=== PATIENT | male | born 1965 | race Caucasian/White ===

== ENCOUNTER 2017-04-24 18:05 | Emergency (ER) | payer BC ==
[~2017-04-24] VITALS: Ht 177.8 cm; Wt 88.5 kg
[2017-04-24 18:05] VITALS: BP 140/99
[2017-04-24] MEDS ORDERED: DICYCLOMINE HCL INJ 20 MG/2 ML AMPUL IM ONE ×2 (19:00→19:04)
[2017-04-24] MEDS ORDERED: ONDANSETRON 4 MG TAB.RAPDIS SL ONE (19:00)
[2017-04-24] MEDS ORDERED: ONDANSETRON 4 MG TAB.RAPDIS ONE (19:05)
== END 2017-04-24 19:23 | disposition home or self-care (01) ==
LOC: ER 18:06
DX: F41.0 Panic disorder [episodic paroxysmal anxiety] (principal); R10.84 Generalized abdominal pain; R11.0 Nausea; R00.0 Tachycardia, unspecified; F12.10 Cannabis abuse, uncomplicated; K21.9 Gastro-esophageal reflux disease without esophagitis; Z88.2 Allergy status to sulfonamides
CPT/HCPCS: 96372; 99284; A4606; J0500; Q0162; Z7610